=== PATIENT | male | born 1975 | race Caucasian/White ===

== ENCOUNTER 2022-01-30 11:30 | Emergency (ER) | payer BC, SELFPAY ==
[2022-01-30] VITALS (9 sets, daily range): BP systolic 97–119; BP diastolic 45–82; PULSE 96–116; RESP 24–32; TEMP 36.4–37.3; O2SAT 93–100; BMI 20.7
[2022-01-30] MEDS: 0.9% Normal Saline 1,000 ML 1000 ML IV ×2 (11:30→13:57)
--- NOTE | 2022-01-30 11:50 | EKG12_ITS ---
Test Reason : ALT LOC Blood Pressure : / mmHG Vent. Rate : 110 BPM Atrial Rate : 110 BPM P-R Int : 138 ms QRS Dur : 096 ms QT Int : 360 ms P-R-T Axes : 049 063 051 degrees QTc Int : 487 ms Sinus tachycardia Cannot exclude brugada Abnormal ECG Confirmed by AMINA MONTEZ, VINNY ([id number]), dictionary editor TRINI MAN ([id number]) on 02/04/2022 8:42:00 AM Referred By: VANNESA Confirmed By:VINNY HUYNH MD
--- NOTE | 2022-01-30 11:54 | EDS_ITS ---
HPI History of Present Illness Chief Complaint: Alt LOC Narrative Narrative: 46-year-old male was brought in after EMS after a welfare check. Patient was found lying inside his house and according to his sister she spoke with his coworkers who state he has not been to work in several days. He remembers cutting firewood with a chainsaw yesterday and crawling inside his residence. He has abrasions on the left side of his body but cannot tell me how these occurred and does not remember anything after crawling in his house. He states he smokes 1/2 PPD and occasionally has alcohol but denies drug use. He takes no prescription medications. He denies chest pain, shortness of breath, or any complaints. PFSH PFSH Medical History no medical history Family History unable to obtain Surgical History no surgical history Social History Smoking Status: Unknown if ever smoked ROS ROS ED ROS Narrative Constitutional: Negative for fever, chills, malaise. Eyes: Negative for visual change. ENT: Negative for sore throat, ear pain, rhinorrhea. CVS: Negative for palpitations, chest pain, syncope. Respiratory: Negative for shortness of breath, cough, orthopnea. GI: Negative for abdominal pain, nausea, vomiting, diarrhea, constipation, melena, hematochezia. : Negative for dysuria, hematuria or frequency. Neuro: Negative for headache, motor/sensory dysfunction. Skin: Positive for abrasions. Negative for rash, abscess Musc: Negative for joint pain, swelling, trauma. Heme: Negative for easy bruising, bleeding, lymphadenopathy. EXAM Physical Exam Narrative Exam Narrative: CONST: Patient sitting in no acute distress. EYES: EOMI, pinpoint pupils reactive bilaterally. ENT: Normal inspection, dry mucous membranes. NECK: Normal inspection. RESP: No respiratory distress, CTAB. CVS: Regular rate and rhythm, no murmur, no gallop. ABD: Soft and nontender, no guarding or rebound, nondistended. Back: Normal inspection. SKIN: Left chest has 4 x 4 cm, 1 x 2 cm abrasion/bullae left of umbilicus, 1 x 1 cm abrasion with blister left dorsal 5th MCP. EXTREMITIES: Dorsal left hand soft tissue swelling. No bony tenderness of upper or lower extremities, 2+ radial and DP pulses. NEURO: Oriented x4. PSYCH: Normal affect. Const Vital Signs: 01/30/22 11:32 01/30/22 11:48 01/30/22 13:50 Temperature 98.5 F 98.3 F Temperature Source Oral Temporal Pulse Rate 116 H 103 H Respiratory Rate 32 H 28 H Respiratory Pattern Normal Blood Pressure 114/76 97/75 Blood Pressure Mean 88 82 Pulse Ox 100 96 Oxygen Delivery Method Room Air 01/30/22 14:25 01/30/22 14:25 01/30/22 15:26 Temperature 99.2 F H 98.6 F Temperature Source Temporal Temporal Pulse Rate 96 98 99 Respiratory Rate 25 H 24 H 24 H Respiratory Pattern Blood Pressure 97/74 97/74 116/77 Blood Pressure Mean 81 81 90 Pulse Ox 96 96 93 Oxygen Delivery Method Room Air Room Air Room Air 01/30/22 16:09 Temperature 98.9 F Temperature Source Temporal Pulse Rate 104 H Respiratory Rate 28 H Respiratory Pattern Blood Pressure 113/79 Blood Pressure Mean 90 Pulse Ox 96 Oxygen Delivery Method Room Air MDM MDM MDM Narrative Medical decision making narrative: 46-year-old male has been lying in his house for several days. He is alert but disoriented and appears dehydrated but nontoxic. BP initially 90s/70s, heart rate in the 110s, RR 20-30s. Afebrile. He has abrasions of the left face, left chest, left abdomen and hand from lying on his side but no no gross deformity or injuries. Heart is rapid but regular. Lungs clear. Abdomen soft and nontender. Extremities are neurovascularly intact. CBC shows white count of 23.9. BMP shows normal electrolytes, creatinine of 2.54, AST/ALT 1961/544. CK is 76,811 consistent with rhabdomyolysis. Lactate is 6.3 and after fluids improved to 3.3. UA is consistent with UTI. Urine tox and alcohol screen ne gative. EKG was read by the machine as a STEMI but on our review is sinus tachycardia with no acute ischemia. High sensitivity troponin is 3172 so I consulted cardiology. Dr. Leyva evaluated the EKG and patient at bedside and does not think this is ACS; believes troponin is elevated secondary to rhabdomyolysis. Patient was treated with 2 L IV fluid bolus then 150 cc/hour, sodium bicarb drip, and Rocephin for the UTI. He has no sign of head injury but due to AMS a CT brain/C-spine were obtained and are negative for traumatic findings. CT brain does note a large CSF collection in the posterior fossa compressing both right and left cerebellar hemisphere spheres. Radiologist noted this is likely an enlarged cisterna magna versus arachnoid cyst. However, hospitalist is concerned with the abnormal CT finding he should be transferred to a tertiary center. Diagnoses 1. Altered mental status 2. Rhabdomyolysis 3. Renal failure 4. Transaminitis 5. Lactic acidosis 5. Multiple left sided abrasions 6. UTI Lab Data Attestation: I reviewed the patient's lab results. Labs: Laboratory Results - last 24 hr 01/30/22 01/30/22 01/30/22 11:40 11:40 11:40 WBC 23.9 H RBC 5.63 Hgb 17.3 H Hct 51.0 MCV 90.6 MCH 30.7 MCHC 33.9 RDW Std Deviation 49.9 H RDW Coeff of Rizwan 15.1 H Plt Count 217 MPV 9.9 Immature Gran % (Auto) 0.700 Neut % (Auto) 82.9 H Lymph % (Auto) 5.3 L [place] % (Auto) 4.8 Eos % (Auto) 6.1 H Baso % (Auto) 0.2 Absolute Neuts (auto) 19.8 H Absolute Lymphs (auto) 1.27 Nucleated RBC % 0 Sodium 137 Potassium 4.3 Chloride 105 Carbon Dioxide 21.0 Anion Gap 11 BUN 36 H Creatinine 2.54 H Estim Creat Clear Calc 39.11 Est GFR (MDRD) Af Amer 35 L Est GFR (MDRD) Non-Af 29 L BUN/Creatinine Ratio 14.2 Glucose 177 H Lactic Acid Calcium 8.8 Total Bilirubin 0.80 AST 1961 H ALT 544 H Alkaline Phosphatase 80 Total Creatine Kinase Troponin I High Sens Total Protein 7.0 Albumin 3.4 Globulin 3.6 Albumin/Globulin Ratio 0.9 Urine Color Urine Clarity Urine pH Ur Specific [place] Urine Protein Urine Glucose (UA) Urine Ketones Urine Occult Blood Urine Nitrite Urine Bilirubin Urine Urobilinogen Ur Leukocyte Esterase Urine RBC Urine WBC Ur Squamous Epith Cells Urine Bacteria Urine Mucus Urine Opiates Screen Urine Methadone Screen Ur Barbiturates Screen Ur Phencyclidine Scrn Ur Amphetamines Screen MDMA (Ecstasy) Screen U Benzodiazepines Scrn Urine Cocaine Screen U Cannabinoids Screen Ur Drug Screen Comment Ethyl Alcohol 10.0 01/30/22 01/30/22 01/30/22 11:40 11:40 11:40 WBC RBC Hgb Hct MCV MCH MCHC RDW Std Deviation RDW Coeff of [place]iz[place] Plt Count MPV Immature Gran % (Auto) Neut % (Auto) Lymph % (Auto) [place] % (Auto) Eos % (Auto) Baso % (Auto) Absolute Neuts (auto) Absolute Lymphs (auto) Nucleated RBC % Sodium Potassium Chloride Carbon Dioxide Anion Gap BUN Creatinine Estim Creat Clear Calc Est GFR (MDRD) Af Amer Est GFR (MDRD) Non-Af BUN/Creatinine Ratio Glucose Lactic Acid 6.3 H* Calcium Total Bilirubin AST ALT Alkaline Phosphatase Total Creatine Kinase 36312 H Troponin I High Sens 3172 H* Total Protein Albumin Globulin Albumin/Globulin Ratio Urine Color Urine Clarity Urine pH Ur Specific [place] Urine Protein Urine Glucose (UA) Urine Ketones Urine Occult Blood Urine Nitrite Urine Bilirubin Urine Urobilinogen Ur Leukocyte Esterase Urine RBC Urine WBC Ur Squamous Epith Cells Urine Bacteria Urine Mucus Urine Opiates Screen Urine Methadone Screen Ur Barbiturates Screen Ur Phencyclidine Scrn Ur Amphetamines Screen MDMA (Ecstasy) Screen U Benzodiazepines Scrn Urine Cocaine Screen U Cannabinoids Screen Ur Drug Screen Comment Ethyl Alcohol 01/30/22 01/30/22 01/30/22 13:10 13:10 14:25 WBC RBC Hgb Hct MCV MCH MCHC RDW Std Deviation RDW Coeff of [place]iz[place] Plt Count MPV Immature Gran % (Auto) Neut % (Auto) Lymph % (Auto) [place] % (Auto) Eos % (Auto) Baso % (Auto) Absolute Neuts (auto) Absolute Lymphs (auto) Nucleated RBC % Sodium Potassium Chloride Carbon Dioxide Anion Gap BUN Creatinine Estim Creat Clear Calc Est GFR (MDRD) Af Amer Est GFR (MDRD) Non-Af BUN/Creatinine Ratio Glucose Lactic Acid 3.3 H* Calcium Total Bilirubin AST ALT Alkaline Phosphatase Total Creatine Kinase Troponin I High Sens Total Protein Albumin Globulin Albumin/Globulin Ratio Urine Color Yellow Urine Clarity Clear Urine pH 5.0 Ur Specific [place] 1.025 Urine Protein 100 H Urine Glucose (UA) Normal Urine Ketones 15 H Urine Occult Blood 250 H Urine Nitrite Positive H Urine Bilirubin Negative Urine Urobilinogen 1 H Ur Leukocyte Esterase 25 H Urine RBC 25-50 SEEN Urine WBC 0-5 SEEN Ur Squamous Epith Cells 0-5 SEEN Urine Bacteria 1+ Urine Mucus 0 SEEN Urine Opiates Screen NEGATIVE Urine Methadone Screen NEGATIVE Ur Barbiturates Screen NEGATIVE Ur Phencyclidine Scrn NEGATIVE Ur Amphetamines Screen NEGATIVE MDMA (Ecstasy) Screen NEGATIVE U Benzodiazepines Scrn NEGATIVE Urine Cocaine Screen NEGATIVE U Cannabinoids Screen NEGATIVE Ur Drug Screen Comment Ethyl Alcohol Radiography Diagnostic Testing: Clinical Impression(s) from Imaging Studies Chest X-Ray 01/30/22 12:50 IMPRESSION: Hyperinflation. The lungs are clear. Electronically Signed: Grabiel Khan MD at 13:11 EDT , Brain CT 01/30/22 14:19 IMPRESSION: Mild degree of hydrocephalus. Large CSF collection in the posterior fossa as described. This most likely represents an enlarged cisterna magna although arachnoid cyst cannot be excluded. Electronically Signed: Grabiel Khan MD at 15:17 EDT , Cervical Spine CT 01/30/22 14:19 IMPRESSION: Normal unenhanced CT examination of the cervical spine. Electronically Signed: Grabiel Khan MD at 15:17 EDT , ED attending interpretation shows normal heart size, no acute infiltrate, edema, or effusion. EKG Initial EKG: Attestation: I personally reviewed and interpreted this EKG as follows: Interpretation: Sinus Rhythm and No Acute Injury Pattern Comments: Sinus tachycardia, normal intervals, 110 bpm Discharge Plan Triage Chief Complaint: Alt LOC ED Midlevel Provider: Jazmin Vyas ED Provider: Luis Felipe Nixon Dx/Rx/DC Orders Primary Care Provider: Care Physician,No Primary Referrals: Care Physician,No Primary [Primary Care Provider] -
[2022-01-30 12:01] LABS: Absolute Lymphocyte Count 1.27 X10^3/uL (0.83-4.51); Absolute Neutrophil Count 19.8 X10^3/uL (2.0-7.7); Basophil# 0.05 X10^3/uL; Basophil% 0.2 % (0-1); Eosinophil# 1.47 X10^3/uL; Eosinophils% 6.1 % (0-5); Hemoglobin 17.3 g/dL (13.0-16.5); Lymphocyte # 1.27 X10^3/ul (0.83-4.51); Lymphocyte % 5.3 % (19-41); Mean Corp Hgb Conc 33.9 g/dL (32-36); Mean Corpuscular Hgb 30.7 pg (27.0-32.0); Mean Corpuscular Volume 90.6 fL (80-94); Mean Platelet Vol. 9.9 fl (6.2-12.0); Monocyte# 1.14 X10^3/uL; Monocyte% 4.8 % (0-10); NRBC Flagged by Analyzer 0 % (0-5); Neutrophil # 19.83 X10^3/uL (2.7-7.7); Neutrophil % 82.9 % (47-70); POSITIVE MORPHOLOGY YES; Platelet Count 217 K/mm3 (150-450); RBC Distribution Width CV 15.1 % (11.6-14.6); RBC Distribution Width SD 49.9 fl (35.1-43.9); Red Blood Count 5.63 M/mm3 (4.6-6.2); White Blood Count 23.9 K/mm3 (4.4-11.0)
--- NOTE | 2022-01-30 12:04 | EKG12_ITS ---
Test Reason : ALT LOC Blood Pressure : / mmHG Vent. Rate : 111 BPM Atrial Rate : 111 BPM P-R Int : 140 ms QRS Dur : 094 ms QT Int : 360 ms P-R-T Axes : 049 063 052 degrees QTc Int : [address] elevation consider anterior injury or acute infarct Cannot exclude brugada Abnormal ECG Confirmed by AMINA MONTEZ, VINNY ([id number]), news video editor TRINI MAN ([id number]) on 02/04/2022 8:52:18 AM Referred By: VANNESA Confirmed By:VINNY HUYNH MD
[2022-01-30] MEDS: Diphth,Pertuss(Acell),Tet Vac 0.5 ML Vial IM (12:15)
[2022-01-30 12:34] LABS: Differential Indicated SCAN CRITERIA MET
[2022-01-30 12:46] LABS: ALB/GLOB Ratio 0.9 RATIO (0.9-2.4); AST(SGOT) 1961 U/L (15-37); Alanine Aminotransfer ALT/SGPT 544 U/L (16-61); Albumin, Serum 3.4 g/dL (3.2-5.0); Alkaline Phosphatase 80 U/L (45-117); Anion Gap 11 (5-15); BUN 36 mg/dL (7-18); BUN/Creat Ratio 14.2 RATIO (10-20); Calcium,Total 8.8 mg/dL (8.5-10.1); Chloride 105 mmol/L (98-107); Creatinine, Serum 2.54 mg/dL (0.70-1.30); EST Glomerular Filtration Rate 29 mL/min (>60); Est Glom Filt Rate - Afr Amer 35 mL/min (>60); Estimated Creatinine Clearance 39.11 ml/min; Globulin 3.6 g/dL (2.2-4.2); Glucose 177 mg/dL (74-106); Potassium 4.3 mmol/L (3.5-5.1); Sodium Level 137 mmol/L (136-145)
--- NOTE | 2022-01-30 12:50 | RAD_ITS ---
STUDY: X-RAY CHEST REASON FOR EXAM: 46-year-old male patient with history of loss of consciousness and fall., TECHNIQUE: Single AP portable view of the chest. COMPARISON: None. FINDINGS: EKG electrodes are seen. The lungs are clear and expanded. There is no demonstrated pleural abnormality. Normal size heart. Normal mediastinum and luis alberto. Normal visualized pulmonary arteries. Normal visualized aortic arch and descending thoracic aorta. There is a dextroscoliosis of the thoracic spine. Normal visualized ribs, clavicles, and shoulders. There is no demonstrated abnormality of the visualized soft tissue structures of the upper abdomen. RAD/Chest 1 View (Portable) IMPRESSION: Hyperinflation. The lungs are clear. Electronically Signed: Grabiel Khan MD at 13:11 EDT ,
[2022-01-30 13:16] LABS: Lactic Acid 6.3 mmol/L (0.4-1.9)
--- NOTE | 2022-01-30 13:38 | CM.ED ---
Social Work Note SW reviewed chart, no PCP listed for pt. Hilda NULL in to speak with pt and provided pt with PCP list. Mattie Elam LAMINATE FLOOR INSTALLER, CHEMICAL PROCESSING LABORER
[2022-01-30 13:40] LABS: Amphetamine Urine VISTA NEGATIVE (<1000 ng/mL); Barbiturate Urine VISTA NEGATIVE (< 200 ng/mL); Benzodiazepine Urine VISTA NEGATIVE (< 200 ng/mL); Cocaine Urine VISTA NEGATIVE (< 300 ng/mL); Ecstacy Urine VISTA NEGATIVE (< 500 ng/mL); Methadone Urine VISTA NEGATIVE (< 300 ng/mL); PCP Urine VISTA NEGATIVE (< 25 ng/mL); THC Urine VISTA NEGATIVE (< 50 ng/mL); Vista UDS pH Range 5
[2022-01-30] MEDS: LORazepam 2 MG/ML Syringe 1 MG IV (13:55)
[2022-01-30 14:05] LABS: Mucous, Urine 0 SEEN /hpf (<or=2+)
[2022-01-30 14:09] LABS: Color, Urine Yellow (Yellow); Glucose, Dipstick Normal (Normal); Ketone-Dipstick 15 mg/dl (Negative); Leukocyte Esterase-Dipstick 25 /ul (Negative); Nitrite-Dipstick Positive (Negative); Occult Blood-Urine 250 /ul (Negative); Protein-Dipstick 100 mg/dl (Negative); Specific Gravity, Urine 1.025 (1.002-1.030); Urine Bilirubin Dipstick Negative (Negative); Urine Clarity Clear (Clear); Urine Urobilinogen 1 mg/dl (Normal)
--- NOTE | 2022-01-30 14:19 | CT_ITS ---
STUDY: CT CERVICAL SPINE WITHOUT CONTRAST REASON FOR EXAM: Male, 46 years old. ams, fall left facial bruising. RADIATION DOSAGE (If Supplied By Facility): CTDIvol = ( 22.54 ) mGy, DLP = ( 465.85 ) mGycm TECHNIQUE: High resolution transaxial imaging was performed without contrast material. Sagittal and coronal images were reconstructed. Individualized dose optimization techniques were used for this CT. COMPARISON: None FINDINGS: Normal craniovertebral junction. Normal anterior atlantoaxial articulation. Normal odontoid process. Normal cervical lordosis. Normal vertebral bodies and posterior osseous elements. C2-3: Normal endplates. Normal disc height and morphology. Normal central canal and intervertebral neuroforamina. C3-4: Normal endplates. Normal disc height and morphology. Normal central canal and intervertebral neuroforamina. C4-5: Normal endplates. Normal disc height and morphology. Normal central canal and intervertebral neuroforamina. C5-6: Normal endplates. Normal disc height and morphology. Normal central canal and intervertebral neuroforamina. C6-7: Normal endplates. Normal disc height and morphology. Normal central canal and intervertebral neuroforamina. C7-T1: Normal endplates. Normal disc height and morphology. Normal central canal and intervertebral neuroforamina. Normal visualized soft tissue structures. CT/Spine Cervical without Contras IMPRESSION: Normal unenhanced CT examination of the cervical spine. Electronically Signed: Grabiel Khan MD at 15:17 EDT ,
--- NOTE | 2022-01-30 14:19 | CT_ITS ---
STUDY: CT BRAIN WITHOUT CONTRAST REASON FOR EXAM: Male, 46 years old. ams RADIATION DOSAGE (If Supplied By Facility): CTDIvol = ( 44.99 ) mGy, DLP = ( 829.85 ) mGycm TECHNIQUE: Transaxial CT imaging of the brain was performed without administration of intravenous contrast material. Individualized dose optimization techniques were used for this CT. COMPARISON: No relevant priors. FINDINGS: Normal soft tissue structures. Normal calvarium. Normal size ventricles and extra-axial spaces for the patient''s age. Normal white matter tracts of the cerebral hemispheres. There is evidence of a mild degree of hydrocephalus. Normal basal ganglia and thalami. Normal brainstem. Normal cerebellum. There is a 3.4 cm x 9.3 cm CSF collection along the posterior aspect of the cerebellum compressing both the right and left cerebellar hemispheres. This most likely represents an enlarged cisterna magna although the large arachnoid cyst cannot be excluded. There is no intracranial hemorrhage. There are no findings of an acute ischemic infarction. Normal visualized paranasal sinuses. CT/Brain/Head without Contrast IMPRESSION: Mild degree of hydrocephalus. Large CSF collection in the posterior fossa as described. This most likely represents an enlarged cisterna magna although arachnoid cyst cannot be excluded. Electronically Signed: Grabiel Khan MD at 15:17 EDT ,
[2022-01-30 14:24] LABS: Bacteria 1+ /hpf (None Seen); Red Blood Cells-Urine 25-50 SEEN /hpf (0-5); Squamous Epithelial Cells - UA 0-5 SEEN /hpf (0-5); White Blood Cells 0-5 SEEN /hpf (0-5)
[2022-01-30 14:47] LABS: Troponin-I HS 3172 pg/mL (3.0-78.0)
[2022-01-30 15:12] LABS: Lactic Acid 3.3 mmol/L (0.4-1.9)
[2022-01-30] MEDS: 0.9% Normal Saline 1,000 ML 150 ML IV (15:19)
[2022-01-30] MEDS: Ceftriaxone 1 GM/50 ML BAG IV (15:27)
--- NOTE | 2022-01-30 17:43 | NURSING ---
Mother and sister (Brittnee Konstantinpam and Rola Sena) at bedside. Updates given. [phone] and [phone] are their numbers, respectively.
--- NOTE | 2022-01-30 17:44 | TELEMED_ITS ---
SOC Telemed has confirmed receipt of a request for visit. This document confirms receipt of the order initiating the consult. To find the results of the consultation, please view the patient's reports for the scanned Telemed Consult.
--- NOTE | 2022-01-30 18:14 | NURSING ---
SOC consult completed, PA at bedside for consult
--- NOTE | 2022-01-30 18:33 | PCM.CONS.GEN ---
HPI Consult Data Date of Consult: 01/30/22 HPI Narrative Reason for Consultation: AMS, altered mental status, last seen well on Thursday HPI Narrative: MAUREEN HANDLEY, is a 46 M [facility] Medical History no medical history Allergy/AdvReac Type Severity Reaction Status Date / Time No Known Allergies Allergy Verified 01/30/22 18:10 Family History unable to obtain Surgical History no surgical history Social History Smoking Status: Unknown if ever smoked Lab / Micro Data Result Diagrams: 01/30/22 11:40 01/30/22 11:40 Labs: Laboratory Results - last 24 hr 01/30/22 11:40: WBC 23.9 H, RBC 5.63, Hgb 17.3 H, Hct 51.0, MCV 90.6, MCH 30.7, MCHC 33.9, RDW Std Deviation 49.9 H, RDW Coeff of Rizwan 15.1 H, Plt Count 217, MPV 9.9, Immature Gran % (Auto) 0.700, Neut % (Auto) 82.9 H, Lymph % (Auto) 5.3 L, [place] % (Auto) 4.8, Eos % (Auto) 6.1 H, Baso % (Auto) 0.2, Absolute Neuts (auto) 19.8 H, Absolute Lymphs (auto) 1.27, Nucleated RBC % 0 01/30/22 11:40: Sodium 137, Potassium 4.3, Chloride 105, Carbon Dioxide 21.0, Anion Gap 11, BUN 36 H, Creatinine 2.54 H, Estim Creat Clear Calc 39.11, Est GFR (MDRD) Af Amer 35 L, Est GFR (MDRD) Non-Af 29 L, BUN/Creatinine Ratio 14.2, Glucose 177 H, Calcium 8.8, Total Bilirubin 0.80, AST 1961 H, ALT 544 H, Alkaline Phosphatase 80, Total Protein 7.0, Albumin 3.4, Globulin 3.6, Albumin/Globulin Ratio 0.9 01/30/22 11:40: Ethyl Alcohol 10.0 01/30/22 11:40: Total Creatine Kinase 17886 H 01/30/22 11:40: Lactic Acid 6.3 H* 01/30/22 11:40: Troponin I High Sens 3172 H* 01/30/22 13:10: Urine Opiates Screen NEGATIVE, Urine Methadone Screen NEGATIVE, Ur Barbiturates Screen NEGATIVE, Ur Phencyclidine Scrn NEGATIVE, Ur Amphetamines Screen NEGATIVE, MDMA (Ecstasy) Screen NEGATIVE, U Benzodiazepines Scrn NEGATIVE, Urine Cocaine Screen NEGATIVE, U Cannabinoids Screen NEGATIVE, Ur Drug Screen Comment 01/30/22 13:10: Urine Color Yellow, Urine Clarity Clear, Urine pH 5.0, Ur Specific [place] 1.025, Urine Protein 100 H, Urine Glucose (UA) Normal, Urine Ketones 15 H, Urine Occult Blood 250 H, Urine Nitrite Positive H, Urine Bilirubin Negative, Urine Urobilinogen 1 H, Ur Leukocyte Esterase 25 H, Urine RBC 25-50 SEEN, Urine WBC 0-5 SEEN, Ur Squamous Epith Cells 0-5 SEEN, Urine Bacteria 1+, Urine Mucus 0 SEEN 01/30/22 14:25: Lactic Acid 3.3 H* Radiology Impression Chest X-Ray 01/30/22 12:50 IMPRESSION: Hyperinflation. The lungs are clear. Electronically Signed: Grabiel Khan MD at 13:11 EDT , Brain CT 01/30/22 14:19 IMPRESSION: Mild degree of hydrocephalus. Large CSF collection in the posterior fossa as described. This most likely represents an enlarged cisterna magna although arachnoid cyst cannot be excluded. Electronically Signed: Grabiel Khan MD at 15:17 EDT , Cervical Spine CT 01/30/22 14:19 IMPRESSION: Normal unenhanced CT examination of the cervical spine. Electronically Signed: Grabiel Khan MD at 15:17 EDT ,
--- NOTE | 2022-01-30 18:42 | PN.HOSP_ITS ---
Hospitalist Note Patient was seen at the request of ER physician Dr. Nixon. Patient has altered mental status, unconsciousness, last conversation with the parent, her mother on past 01/28/2022 through the phone. Patient lives alone. There is wellness check performed as patient did not show port for last 2 days. He was found laying on the kitchen table, unresponsive unconscious. Exact period of unresponsiveness, unconsciousness and history and cleared Patient not able to keep eyes open, opens momentarily on command but closes immediately. Bilateral pupils are constricted. Patient is not able to if you are, in complete sentences. Particularly ACS 11-day later twelve-lead. GCS 11- 12 Clinical Impression(s) from Imaging Studies Chest X-Ray 01/30/22 12:50 IMPRESSION: Hyperinflation. The lungs are clear. Electronically Signed: Grabiel Khan MD at 13:11 EDT , Brain CT 01/30/22 14:19 IMPRESSION: Mild degree of hydrocephalus. Large CSF collection in the posterior fossa as described. This most likely represents an enlarged cisterna magna although arachnoid cyst cannot be excluded. Electronically Signed: Grabiel Khan MD at 15:17 EDT , Cervical Spine CT 01/30/22 14:19 IMPRESSION: Normal unenhanced CT examination of the cervical spine. Electronically Signed: Grabiel Khan MD at 15:17 EDT ,
[2022-01-30 18:58] LABS: Ammonia < 10.0 umol/L (11-32)
[2022-01-30 19:03] LABS: Thyroid Stim Hormone (TSH) 4.49 uIU/mL (0.358-3.74)
--- NOTE | 2022-01-30 19:10 | ED.RN ---
Per day shift staff, patient is being transferred to [facility] but they do not have a bed for him. ED physician spoke with Dr Rashid and Dr Barker who both do not feel comfortable admitting patient. Dr Nixon waiting to speak with [facility] again.
--- NOTE | 2022-01-30 19:21 | PCM.CONS.GEN ---
Assessment & Plan Assessment/Plan (1) Acute encephalopathy: (2) Elevated intracranial pressure: (3) Non-STEMI (non-ST elevated myocardial infarction): (4) Acute renal failure due to rhabdomyolysis: PLAN: Plan 1. Unconscious/unresponsive episode, currently SEMICONSCIOUS, acute encephalopathy: Patient having features of increased intracranial pressure with bilateral constricted pupil, decreased responsiveness, GCS 11?12. No exact etiology unclear. CT brain and neck shows mild degree of hydrocephalus, large CSF collection in posterior fossa, 3.4 cm x 9.3 cm CSF collection along posterior aspect of cerebellum compressing right and left cerebellar hemispheres. 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 No ICH. No features of acute ischemic infarction. Patient has decreased responsiveness, decreased GCS with bilateral constricted pupil therefore needs urgent neurosurgeon evaluation which [facility] does not have. SOC neurology consultation recommended neurology and neurosurgery consultation in person BR[facility]. Neurochecks every 1 hour, seizure precaution, head to bed elevated 30 degrees SCDs and other test. MRI brain without contrast EEG. In fact patient needs neuro ICU care. I myself called [facility] and spoke to FRNACK Malone who is going to speak to neurosurgeon. Actually they were on the impression that patient is stable for [facility] floor. I told that the patient needs neuro ICU care and is showing features of increased intracranial pressure with decreased GCS score. They are going to call back the ER physician regarding logistics of transfer there direct admit or transfer to their ED. I communicated to the same to ER physician Dr. BLUE and he understood. 2. Acute rhabdomyolysis: Patient has CK 7611, lactic acid 6.3,HS-troponin 3172, elevated transaminases showing features of acute rhabdomyolysis. Needs aggressive IV fluid normal saline. Ethyl alcohol level is less than 10. U tox negative although is not confirmatory of ruling out substance use. Patient on bicarb drip. 3. Acute kidney injury: BUN/creatinine high 36/2.54. Acute kidney injury mostly due to acute rhabdomyolysis. Patient has mild proteinuria, nitrite positive, ketones 15, LE 25. Patient had 1 dose of IV ceftriaxone in the ED. Anion gap is normal. Bicarb 21. 4. Leukocytosis probably due to rhabdomyolysis: Inflammatory/reactive. Patient not having signs of any infection. I do not see patient has features of sepsis, sepsis less likely. Blood culture and urine culture has been ordered At [facility] neurologist recommended patient needs transfer to neuro ICU care with ability of inpatient neurologist and neurosurgeon therefore urgent transfer. Total time of the visit including total time spent in counseling or coordination of care, (more than 50% of the total time, spent in obtaining medical information from nurses and other ancillary care providers,explaining to the patient about labs, imaging, diagnosis and management), discussion with ER physician, patient's mother father in room, aco coordinator to [facility], discussion with neurology MOHAN Malone, and facilitation of transfer review of labs and imaging is 70 minutes. Laboratory Results 01/30/22 11:40: WBC 23.9 H, RBC 5.63, Hgb 17.3 H, Hct 51.0, MCV 90.6, MCH 30.7, MCHC 33.9, RDW Std Deviation 49.9 H, RDW Coeff of Rizwan 15.1 H, Plt Count 217, MPV 9.9, Immature Gran % (Auto) 0.700, Neut % (Auto) 82.9 H, Lymph % (Auto) 5.3 L, [place] % (Auto) 4.8, Eos % (Auto) 6.1 H, Baso % (Auto) 0.2, Absolute Neuts (auto) 19.8 H, Absolute Lymphs (auto) 1.27, Nucleated RBC % 0 01/30/22 11:40: Sodium 137, Potassium 4.3, Chloride 105, Carbon Dioxide 21.0, Anion Gap 11, BUN 36 H, Creatinine 2.54 H, Estim Creat Clear Calc 39.11, Est GFR (MDRD) Af Amer 35 L, Est GFR (MDRD) Non-Af 29 L, BUN/Creatinine Ratio 14.2, Glucose 177 H, Calcium 8.8, Total Bilirubin 0.80, AST 1961 H, ALT 544 H, Alkaline Phosphatase 80, Total Protein 7.0, Albumin 3.4, Globulin 3.6, Albumin/Globulin Ratio 0.9 01/30/22 11:40: Ethyl Alcohol 10.0 01/30/22 11:40: Total Creatine Kinase 17510 H 01/30/22 11:40: Lactic Acid 6.3 H* 01/30/22 11:40: Troponin I High Sens 3172 H* 01/30/22 13:10: Urine Opiates Screen NEGATIVE, Urine Methadone Screen NEGATIVE, Ur Barbiturates Screen NEGATIVE, Ur Phencyclidine Scrn NEGATIVE, Ur Amphetamines Screen NEGATIVE, MDMA (Ecstasy) Screen NEGATIVE, U Benzodiazepines Scrn NEGATIVE, Urine Cocaine Screen NEGATIVE, U Cannabinoids Screen NEGATIVE, Ur Drug Screen Comment 01/30/22 13:10: Urine Color Yellow, Urine Clarity Clear, Urine pH 5.0, Ur Specific [place] 1.025, Urine Protein 100 H, Urine Glucose (UA) Normal, Urine Ketones 15 H, Urine Occult Blood 250 H, Urine Nitrite Positive H, Urine Bilirubin Negative, Urine Urobilinogen 1 H, Ur Leukocyte Esterase 25 H, Urine RBC 25-50 SEEN, Urine WBC 0-5 SEEN, Ur Squamous Epith Cells 0-5 SEEN, Urine Bacteria 1+, Urine Mucus 0 SEEN 01/30/22 14:25: Lactic Acid 3.3 H* 01/30/22 18:25: TSH 4.49 H 01/30/22 18:25: Ammonia < 10.0 L 01/30/22 18:25: VBG Carboxyhemoglobin Pending 01/30/22 19:05: Total Creatine Kinase Pending, Troponin I High Sens Pending 01/30/22 19:05: Lactic Acid Pending Clinical Impression(s) from Imaging Studies Chest X-Ray 01/30/22 12:50 IMPRESSION: Hyperinflation. The lungs are clear. Brain CT 01/30/22 14:19 IMPRESSION: Mild degree of hydrocephalus. Large CSF collection in the posterior fossa as described. This most likely represents an enlarged cisterna magna although arachnoid cyst cannot be excluded. Electronically Signed: Grabiel Khan MD at 15:17 EDT , Cervical Spine CT 01/30/22 14:19 IMPRESSION: Normal unenhanced CT examination of the cervical spine. Electronically Signed: Grabiel Khan MD at 15:17 EDT , HPI Consult Data Date of Consult: 01/30/22 Attending Care Provider: Patient was seen at the request of ER physician Dr. Nixon. HPI Narrative Reason for Consultation: Decreased responsiveness, altered mental status HPI Narrative: MAUREEN HANDLEY, is a 46 M who presents Patient was seen at the request of ER physician Dr. Nixon. Patient has altered mental status, unconsciousness, last conversation with the parent, her mother on past 01/28/2022 through the phone.? Patient lives alone.? There is wellness check performed as patient did not show port for last 2 days.? He was found laying on the kitchen table, unresponsive unconscious. Exact period of unresponsiveness, unconsciousness and history and cleared Patient not able to keep eyes open, opens momentarily on command but closes immediately.? Bilateral pupils are constricted.? Patient is not able to if you are, in complete sentences.? Particularly ACS 11-day later twelve-lead. GCS 12. Patient able to protect his airway His mother said patient was born normal liver denies any section obstructed liver. Mom further said patient did not had big head but has broken shoulder. [facility] Medical History no medical history Home Medications NK 01/30/22 [History Last Taken Unknown] Allergy/AdvReac Type Severity Reaction Status Date / Time No Known Allergies Allergy Verified 01/30/22 18:10 Family History unable to obtain Surgical History no surgical history Social History Smoking Status: Unknown if ever smoked ROS ROS Narrative No history of substance use, drug use or alcohol as per mother. Patient states he does not had cocaine, methamphetamine or other substance use. 14 detail ROS unobtainable. Review of Systems ROS Unobtainable: due to encephalopathy and due to mental condition Physical Exam Narrative Physical exam General: Drowsy, lethargic, obtunded HEENT: Bilaterally constricted pupil. Patient keeps his eyes closed opens mainly on verbal command Oral: No Gingival or Mucosal Lesions/ Ulcerations Neck: Supple, No JVD, Negative Carotid Bruits Lungs: Air entry diminished in bilateral lung bases. No crepitation/rhonchi Cardiovascular: Sinus tachycardia normal S1, Normal S2, No murmurs Abdomen: Bowel Sounds Present, Soft, Non Tender, Non-Distended : No renal angle tenderness. No suprapubic tenderness. Extremities: No edema, Capillary Refill Less than 3 Seconds Skin: Blistered skin tear over left forearm ventral aspect and hand Musculoskeletal: No Tenderness to Palpation of Joints or Extremities Neurological: Detailed neuro exam unobtainable. GCS 11?12, Psych/Mental Status: Flat affect Lab / Micro Data Result Diagrams: 01/30/22 11:40 01/30/22 11:40 Labs: Laboratory Results - last 24 hr 01/30/22 11:40: WBC 23.9 H, RBC 5.63, Hgb 17.3 H, Hct 51.0, MCV 90.6, MCH 30.7, MCHC 33.9, RDW Std Deviation 49.9 H, RDW Coeff of Rizwan 15.1 H, Plt Count 217, MPV 9.9, Immature Gran % (Auto) 0.700, Neut % (Auto) 82.9 H, Lymph % (Auto) 5.3 L, [place] % (Auto) 4.8, Eos % (Auto) 6.1 H, Baso % (Auto) 0.2, Absolute Neuts (auto) 19.8 H, Absolute Lymphs (auto) 1.27, Nucleated RBC % 0 01/30/22 11:40: Sodium 137, Potassium 4.3, Chloride 105, Carbon Dioxide 21.0, Anion Gap 11, BUN 36 H, Creatinine 2.54 H, Estim Creat Clear Calc 39.11, Est GFR (MDRD) Af Amer 35 L, Est GFR (MDRD) Non-Af 29 L, BUN/Creatinine Ratio 14.2, Glucose 177 H, Calcium 8.8, Total Bilirubin 0.80, AST 1961 H, ALT 544 H, Alkaline Phosphatase 80, Total Protein 7.0, Albumin 3.4, Globulin 3.6, Albumin/Globulin Ratio 0.9 01/30/22 11:40: Ethyl Alcohol 10.0 01/30/22 11:40: Total Creatine Kinase 93209 H 01/30/22 11:40: Lactic Acid 6.3 H* 01/30/22 11:40: Troponin I High Sens 3172 H* 01/30/22 13:10: Urine Opiates Screen NEGATIVE, Urine Methadone Screen NEGATIVE, Ur Barbiturates Screen NEGATIVE, Ur Phencyclidine Scrn NEGATIVE, Ur Amphetamines Screen NEGATIVE, MDMA (Ecstasy) Screen NEGATIVE, U Benzodiazepines Scrn NEGATIVE, Urine Cocaine Screen NEGATIVE, U Cannabinoids Screen NEGATIVE, Ur Drug Screen Comment 01/30/22 13:10: Urine Color Yellow, Urine Clarity Clear, Urine pH 5.0, Ur Specific [place] 1.025, Urine Protein 100 H, Urine Glucose (UA) Normal, Urine Ketones 15 H, Urine Occult Blood 250 H, Urine Nitrite Positive H, Urine Bilirubin Negative, Urine Urobilinogen 1 H, Ur Leukocyte Esterase 25 H, Urine RBC 25-50 SEEN, Urine WBC 0-5 SEEN, Ur Squamous Epith Cells 0-5 SEEN, Urine Bacteria 1+, Urine Mucus 0 SEEN 01/30/22 14:25: Lactic Acid 3.3 H* 01/30/22 18:25: TSH 4.49 H 01/30/22 18:25: Ammonia < 10.0 L Radiology Impression Chest X-Ray 01/30/22 12:50 IMPRESSION: Hyperinflation. The lungs are clear. Electronically Signed: Grabiel Khan MD at 13:11 EDT , Brain CT 01/30/22 14:19 IMPRESSION: Mild degree of hydrocephalus. Large CSF collection in the posterior fossa as described. This most likely represents an enlarged cisterna magna although arachnoid cyst cannot be excluded. Electronically Signed: Grabiel Khan MD at 15:17 EDT Reading Location ID and State: [id number] / [id number] , Service support , Cervical Spine CT 01/30/22 14:19 IMPRESSION: Normal unenhanced CT examination of the cervical spine. Electronically Signed: Grabiel Khan MD at 15:17 EDT Reading Location ID and State: [id number] / [id number] , Service support , Charges/Coding Visit Charges Office Visits / Consults: [id number] IP Consult L5
[2022-01-30 19:47] LABS: Lactic Acid 2.5 mmol/L (0.4-1.9)
[2022-01-30 19:53] LABS: Carboxyhemoglobin Frac (CO) 3.2 % (0.0-1.5)
--- NOTE | 2022-01-30 20:27 | ED.RN ---
dr wall working on transferring pt to [facility].
--- NOTE | 2022-01-30 20:28 | NURSING ---
FAXED FACE SHEET TO [facility] AT 830PM
--- NOTE | 2022-01-30 20:35 | RAD_ITS ---
STUDY: X-RAY CHEST REASON FOR EXAM: Male, 46 years old. CHEST PAIN cough TECHNIQUE: XR Chest 1 View COMPARISON: Study done earlier today. FINDINGS: There is no demonstrated pleural abnormality. Normal size heart. Normal mediastinum and luis alberto. Normal visualized pulmonary arteries. Normal visualized aortic arch and descending thoracic aorta. Normal visualized thoracic spine. Normal visualized ribs, clavicles, and shoulders. There is no demonstrated abnormality of the visualized soft tissue structures of the upper abdomen. RAD/Chest 1 View (Portable) IMPRESSION: There are no acute findings. Electronically Signed: Dean Daly MD at 20:54 EDT ,
--- NOTE | 2022-01-30 20:55 | PCM.CONS.C ---
HPI Consult Data Date of Consult: 01/31/22 HPI Narrative Reason for Consultation: Elevated troponin in a patient that was found down. HPI Narrative: MAUREEN HANDLEY, is a 46 M who presents after being found down for close to 48 hours. Lives alone, independent in activities of daily living, no prior cardiac history, patient was not returning phone calls or messages, and a coworker found him on the floor unconscious. Patient not able to provide much history. Please refer to ER notes regarding history of presentation. His EKG showed subtle anterior ST-T abnormality, patient denied chest pressure tightness or heaviness. He was somewhat sleepy during the interview, but could be awakened, and responded appropriately to simple questions. He had had some injury from his fall. He showed evidence of rhabdomyolysis, troponin was elevated, but doubt acute coronary syndrome, it was probably type II myocardial infarction. No documented history of hypertension or diabetes. Abnormalities on the CT of the head as detailed, I have reviewed notes by admitting hospitalist, who has subsequently initiated neurosurgery evaluation, and the plan is for patient to be transferred for higher level of neurosurgical care. Remote history of drug abuse, none in the past several years. Very infrequent alcohol use. Family history of premature coronary artery disease in paternal uncle who suffered myocardial event in his late 40s/early 50s. Patient's sister provided this history Laboratory data notable for elevated total white count, elevated CPK, elevated troponin, and acute kidney injury. Patient also with evidence of urinary tract infection. Elevated lactic acid level Assessment: 1. No prior cardiac history 2. Abnormal EKG-not diagnostic of acute ST elevation myocardial infarction, but consider?? Brugada syndrome. No family history of sudden cardiac . No prior cardiac symptoms. Do not elicit any symptoms of chest discomfort. 3. Syncope, etiology unclear 4. Rhabdomyolysis 5. Acute kidney injury possibly related to rhabdomyolysis and volume depletion 6. Encephalopathy and findings of elevated intracranial pressure-please see detailed notes by hospitalist service 7. Elevated troponin most consistent with type II myocardial infarction. Recommendations: 1. Aggressive supportive care with fluids and antibiotics as you are doing 2. Echocardiogram 3. Serial troponins 4. Additional cardiac work-up will depend upon neurological status and extent of neurological recovery. 5. If echocardiogram shows preserved LV systolic function and no regional wall motion abnormality, and troponins trended down, if this patient needs any type of surgical procedure I would say that the risk benefit ratio is favorable. 6. Holding off on antiplatelet therapy given the possible need for surgery to relieve intracranial pressure. Patient was seen in the emergency department. This consult note is a late entry. Thank you for allowing us to participate in patient's care, please do not hesitate to call if further questions arise, Sincerely, Margaret dailey MD [facility] Medical History no medical history Home Medications NK 01/30/22 [History Last Taken Unknown] Allergy/AdvReac Type Severity Reaction Status Date / Time No Known Allergies Allergy Verified 01/30/22 18:10 Family History unable to obtain Surgical History no surgical history Social History Smoking Status: Unknown if ever smoked ROS Review of Systems ROS Unobtainable: due to encephalopathy Physical Exam Const Constitutional Narrative: Appears sleepy, but arousable. Able to answer very simple questions. No facial asymmetry, no jugular venous distention no carotid bruit lungs are clear anteriorly cannot exclude pectus excavatum breath sounds are diminished posteriorly at the bases without crepitations or rhonchi heart sounds are regular without murmur rub or gallop abdomen is soft and nontender extremities showed no edema distal pulses are symmetric and palpable plantar responses downgoing patient is moving all extremities skin shows no petechia or rash. No gross cranial nerve deficits or facial asymmetry no scleral icterus Risk Stratification Risk Stratification Applicable: Yes Age >/= 65: No >/= 3 CAD Risk Factors (HTN, HLD, DM, family hx of CAD, or current smoker): No Aspirin Use in the Past 7 Days: No Severe Angina (>/= episodes in 24 hours): No EKG ST Changes >/= 0.5mm: No Positive Cardiac Marker: Yes CALLY Risk Stratification Score: 1 CALLY % Risk: 5% Risk Objective Data Vital Signs: Vital Signs Temp Pulse Resp BP Pulse Ox 97.6 F L 103 H 28 H 108/45 L 96 01/30/22 19:58 01/30/22 19:58 01/30/22 19:58 01/30/22 19:58 01/30/22 19:58 Oxygen Delivery Method Room Air Weight: 166 lb Body Mass Index (BMI) 20.7 Intake & Output: Intake and Output for Last 24 Hours 01/28/22 01/29/22 01/30/22 23:59 23:59 23:59 Intake Total 2049 Balance 2049 Lab / Micro Data Result Diagrams: 01/30/22 23:30 01/30/22 23:30 Labs: Laboratory Results - last 24 hr 01/30/22 11:40: WBC 23.9 H, RBC 5.63, Hgb 17.3 H, Hct 51.0, MCV 90.6, MCH 30.7, MCHC 33.9, RDW Std Deviation 49.9 H, RDW Coeff of Rizwan 15.1 H, Plt Count 217, MPV 9.9, Immature Gran % (Auto) 0.700, Neut % (Auto) 82.9 H, Lymph % (Auto) 5.3 L, [place] % (Auto) 4.8, Eos % (Auto) 6.1 H, Baso % (Auto) 0.2, Absolute Neuts (auto) 19.8 H, Absolute Lymphs (auto) 1.27, Nucleated RBC % 0 01/30/22 11:40: Sodium 137, Potassium 4.3, Chloride 105, Carbon Dioxide 21.0, Anion Gap 11, BUN 36 H, Creatinine 2.54 H, Estim Creat Clear Calc 39.11, Est GFR (MDRD) Af Amer 35 L, Est GFR (MDRD) Non-Af 29 L, BUN/Creatinine Ratio 14.2, Glucose 177 H, Calcium 8.8, Total Bilirubin 0.80, AST 1961 H, ALT 544 H, Alkaline Phosphatase 80, Total Protein 7.0, Albumin 3.4, Globulin 3.6, Albumin/Globulin Ratio 0.9 01/30/22 11:40: Ethyl Alcohol 10.0 01/30/22 11:40: Total Creatine Kinase 04541 H 01/30/22 11:40: Lactic Acid 6.3 H* 01/30/22 11:40: Troponin I High Sens 3172 H* 01/30/22 13:10: Urine Opiates Screen NEGATIVE, Urine Methadone Screen NEGATIVE, Ur Barbiturates Screen NEGATIVE, Ur Phencyclidine Scrn NEGATIVE, Ur Amphetamines Screen NEGATIVE, MDMA (Ecstasy) Screen NEGATIVE, U Benzodiazepines Scrn NEGATIVE, Urine Cocaine Screen NEGATIVE, U Cannabinoids Screen NEGATIVE, Ur Drug Screen Comment 01/30/22 13:10: Urine Color Yellow, Urine Clarity Clear, Urine pH 5.0, Ur Specific [place] 1.025, Urine Protein 100 H, Urine Glucose (UA) Normal, Urine Ketones 15 H, Urine Occult Blood 250 H, Urine Nitrite Positive H, Urine Bilirubin Negative, Urine Urobilinogen 1 H, Ur Leukocyte Esterase 25 H, Urine RBC 25-50 SEEN, Urine WBC 0-5 SEEN, Ur Squamous Epith Cells 0-5 SEEN, Urine Bacteria 1+, Urine Mucus 0 SEEN 01/30/22 14:25: Lactic Acid 3.3 H* 01/30/22 18:25: TSH 4.49 H 01/30/22 18:25: Ammonia < 10.0 L 01/30/22 19:05: Lactic Acid 2.5 H* ABG Data ABG results: ABG 01/30/22 18:25 VBG Carboxyhemoglobin 3.2 H Cardiology Labs/Tests 01/30/22 11:40: WBC 23.9 H, RBC 5.63, Hgb 17.3 H, Hct 51.0, MCV 90.6, MCH 30.7, MCHC 33.9, Plt Count 217, MPV 9.9, Immature Gran % (Auto) 0.700, Neut % (Auto) 82.9 H, Lymph % (Auto) 5.3 L, [place] % (Auto) 4.8, Eos % (Auto) 6.1 H, Baso % (Auto) 0.2, Absolute Neuts (auto) 19.8 H, Nucleated RBC % 0 01/30/22 11:40: Sodium 137, Potassium 4.3, Chloride 105, Carbon Dioxide 21.0, Anion Gap 11, BUN 36 H, Creatinine 2.54 H, Est GFR (MDRD) Af Amer 35 L, Est GFR (MDRD) Non-Af 29 L, BUN/Creatinine Ratio 14.2, Glucose 177 H, Calcium 8.8, Total Bilirubin 0.80 01/30/22 11:40: Lactic Acid 6.3 H* 01/30/22 13:10: Urine Color Yellow, Urine Clarity Clear, Urine pH 5.0, Ur Specific [place] 1.025, Urine Protein 100 H, Urine Glucose (UA) Normal, Urine Ketones 15 H, Urine Occult Blood 250 H, Urine Nitrite Positive H, Urine Bilirubin Negative, Urine Urobilinogen 1 H, Ur Leukocyte Esterase 25 H, Urine RBC 25-50 SEEN, Urine WBC 0-5 SEEN 01/30/22 14:25: Lactic Acid 3.3 H* 01/30/22 19:05: Lactic Acid 2.5 H* Rhythm: EKG: ECHO: Stress Test: Cardiac Cath: PCI: CT Surgery: Holter monitor: EPS: PPM: CXR: Chest CT Scan: Radiography Diagnostic Testing: Radiology Impression Chest X-Ray 01/30/22 12:50 IMPRESSION: Hyperinflation. The lungs are clear. Electronically Signed: Grabiel Khan MD at 13:11 EDT , Brain CT 01/30/22 14:19 IMPRESSION: Mild degree of hydrocephalus. Large CSF collection in the posterior fossa as described. This most likely represents an enlarged cisterna magna although arachnoid cyst cannot be excluded. Electronically Signed: Grabiel Khan MD at 15:17 EDT , Cervical Spine CT 01/30/22 14:19 IMPRESSION: Normal unenhanced CT examination of the cervical spine. Electronically Signed: Grabiel Khan MD at 15:17 EDT ,
[2022-01-30 21:22] LABS: Troponin-I HS 2786 pg/mL (3.0-78.0)
--- NOTE | 2022-01-30 22:30 | NURSING ---
CALLED [facility] AT 0 AND NO UPDATE ON A BED YET
[2022-01-30 23:09] LABS: Reflex Lactate? Y
[2022-01-30 23:26] LABS: CPK Total, Creatine Kinase 58840 U/L (39-308)
--- NOTE | 2022-01-30 23:26 | NURSING ---
CALLED SOC NEUROLOGY PER DR DUKE TO TALK WITH THE DR WHO DID CONSULT EARLIER AT [id number]. WAITING FOR CALL BACK
[2022-01-30 23:41] LABS: Absolute Lymphocyte Count 1.92 X10^3/uL (0.83-4.51); Absolute Neutrophil Count 17.9 X10^3/uL (2.0-7.7); Basophil# 0.04 X10^3/uL; Basophil% 0.2 % (0-1); Eosinophil# 0.01 X10^3/uL; Hematocrit 42.8 % (40-54); Hemoglobin 14.9 g/dL (13.0-16.5); Lymphocyte # 1.92 X10^3/ul (0.83-4.51); Lymphocyte % 8.8 % (19-41); Mean Corp Hgb Conc 34.8 g/dL (32-36); Mean Corpuscular Hgb 30.9 pg (27.0-32.0); Mean Corpuscular Volume 88.8 fL (80-94); Mean Platelet Vol. 9.8 fl (6.2-12.0); Monocyte# 1.74 X10^3/uL; NRBC Flagged by Analyzer 0 % (0-5); Neutrophil # 17.89 X10^3/uL (2.7-7.7); Neutrophil % 82.5 % (47-70); POSITIVE DIFFERENTIAL YES; Platelet Count 153 K/mm3 (150-450); RBC Distribution Width CV 14.7 % (11.6-14.6); RBC Distribution Width SD 48.2 fl (35.1-43.9); Red Blood Count 4.82 M/mm3 (4.6-6.2); White Blood Count 21.7 K/mm3 (4.4-11.0)
[2022-01-30 23:43] LABS: Differential Indicated SCAN CRITERIA MET
--- NOTE | 2022-01-30 23:53 | ED.RN ---
Dr Cisse paged for admission until patient receives [facility] bed. Dr cisse does not feel patient is safe to be admitted here and wishes to speak to the neurology from [facility] that did his SOC consult earlier. ED paged for SOC.
[2022-01-31 00:01] LABS: Lactic Acid 1.3 mmol/L (0.4-1.9)
[2022-01-31 00:07] LABS: ALB/GLOB Ratio 0.8 RATIO (0.9-2.4); AST(SGOT) 1261 U/L (15-37); Alanine Aminotransfer ALT/SGPT 417 U/L (16-61); Albumin, Serum 2.6 g/dL (3.2-5.0); Alkaline Phosphatase 65 U/L (45-117); Anion Gap 5 (5-15); Anisocytosis 1+; BUN 36 mg/dL (7-18); BUN/Creat Ratio 17.6 RATIO (10-20); Calcium,Total 7.8 mg/dL (8.5-10.1); Chloride 105 mmol/L (98-107); Creatinine, Serum 2.04 mg/dL (0.70-1.30); EST Glomerular Filtration Rate 38 mL/min (>60); Est Glom Filt Rate - Afr Amer 46 mL/min (>60); Globulin 3.2 g/dL (2.2-4.2); Glucose 145 mg/dL (74-106); Protein, Total 5.8 g/dL (6.4-8.2); Sodium Level 135 mmol/L (136-145)
--- NOTE | 2022-01-31 00:54 | ED.RN ---
called [facility] transfer line for update on bed availability. spoke with Tello who states there is no ETA for bed. This RN explains that our hospitalist does not want to admit/board patient and the patient is not appropriate to keep in the ED for days. He states he is going to call the MICU and try to get a closer update. Waiting for a call back.
[2022-01-31 01:05] LABS: Allen Test Positive; Base Excess -2 mmol/L (-2 to +2); Bicarbonate 22.1 mmol/L (22-26); Blood Gas Specimen Type ART; O2 Delivery Device Room Air; PO2 74 mmHG (75-100); SITE L Radial; SO2 96 % (95-99); Total Carbon Dioxide 23 mmol/L; pCO2 30.8 mmHg (35-45); pH 7.46 (7.35-7.45)
[2022-01-31 01:13] VITALS: BP 93/50; PULSE 96; RESP 18; TEMP 36.7; O2SAT 94
[2022-01-31] MEDS: Tetracaine 0.5% Ophthalmic Bottle 1 DRP EACH EYE (02:32)
[2022-01-31] MEDS: Fluorescein 1 MG STRIP 1 STRIP EACH EYE (02:32)
[2022-01-31 02:41] VITALS: BP 133/84; PULSE 100; RESP 18; TEMP 36.6; O2SAT 98
[2022-01-31] MEDS: Erythromycin Base 1 OPTH.TUBE 1 APPLIC EACH EYE (03:32)
--- NOTE | 2022-01-31 04:20 | ED.RN ---
[facility] critical care transport team calls asking for report on patient, states patient has a bed and they will call back in a few minutes with ETA and admitting details.
[2022-01-31 04:34] LABS: International Normalized Ratio 1.2; Prothrombin Time (Protime)PT. 14.7 SECONDS (11.7-14.9)
[2022-01-31 04:54] LABS: T4 Free Direct 0.89 ng/dL (0.76-1.46); Troponin-I HS 1792 pg/mL (3.0-78.0)
--- NOTE | 2022-01-31 05:53 | NURSING ---
CALLED [facility] APPROX 0530 THEY GAVE BED NUMBER. THEY SAID THEY WILL CALL APPROX [id number] WITH TRANSPORT ETA.
[2022-01-31] MEDS: 0.9% Normal Saline 1,000 ML 150 ML IV (06:07)
[2022-01-31 06:08] LABS: CPK Total, Creatine Kinase 49944 U/L (39-308)
[2022-01-31 07:34] VITALS: BP 132/88; PULSE 91; TEMP 36.4; O2SAT 99
[2022-01-31 13:53] LABS: Pathologist Review Reviewed
== END 2022-01-31 07:56 | disposition short-term general hospital (02) ==
PROVIDERS: Internal Medicine; Physician Assistant; Emergency Provider Emergency Medicine; PCP Family Medicine; Visit Provider Emergency Medicine
DX: G91.9 Hydrocephalus, unspecified (principal); N17.9 Acute kidney failure, unspecified; I21.4 Non-ST elevation (NSTEMI) myocardial infarction; M62.82 Rhabdomyolysis; R74.01 Elevation of levels of liver transaminase levels; E87.2 Acidosis; G93.40 Encephalopathy, unspecified; N39.0 Urinary tract infection, site not specified; S20.91XA Abrasion of unspecified parts of thorax, initial encounter; S30.811A Abrasion of abdominal wall, initial encounter; S00.81XA Abrasion of other part of head, initial encounter; S20.312A Abrasion of left front wall of thorax, initial encounter; S60.519A Abrasion of unspecified hand, initial encounter; F17.200 Nicotine dependence, unspecified, uncomplicated
CPT/HCPCS: 36600; 70450; 71045; 72125; 80053; 80307; 81001; 82077; 82140; 82375; 82550; 82803; 83605; 84439; 84443; 84484; 85025; 85610; 87040; 87086; 87811; 90715; 93005; 96361; 96365; 96366; 96367; 96375; 99285; J7030; A4216

== ENCOUNTER 2022-09-18 15:30 | Outpatient (RCR) | payer BC, SELFPAY ==
--- NOTE | 2022-04-01 10:34 | HP.OTEVAL ---
Patient's Visit Information MAUREEN HANDLEY is a 46 year old M, referred to Occupational Therapy by Dr. Caleb Cote MD, with a diagnosis of compression neuropathy of left UE/ Physical debility. Date of Evaluation: 03/31/22 Occupational Therapist: Gemma Traore, KIMANI/John, CHT - Subjective This 46 year old male was seen for OT eval with dx of Physical debility, compression neuropathy of left UE- pt states he suffered a heat stroke, rhabdomyolysis, SUDHEER,DVT of left leg and left compression neuropathy left hand- intracrainial arachnoid cyst January 29- (lost power and did not have air conditioning) passed out right inside the front door and woke up two days later. pt states his work ([employer] [place] employed 15 years ) called in a well check visit- and he was able to answer the door- they called EMS transported to [facility] and transferred to - and was released home possibly February 05 or sometime around there- pt lives a long - states worse part is trying to sleep - states he hurts all over- he has not had a nerve conduction test but will see a neurologist the end of this. month- pt states he is doing some ROM for his left UE- and is undergoing PT at . prior to this event he was IND. with all ADLs and IADLs. - ADLs Comments: pt states he is mtg with his ADls and IADLs - pt states everything takes longer -. He has been going to his parents home for meals and sisters home-. sister is helping with his yard work. - Pain left UE 2 Pain Intensity Range: 3, 5 - ROM Shoulder: right WNL left 150* left ER/IF shoulder LIMITED Elbow: right WNL left WNL Forearm: right WNL left WNL Wrist: right 75/60 left 50/50 CMC: right WNL left +20 MP: right 70* left 65* IP: right 75* left 65* Radial Abduction: right45* left 25* Opposition: Kapandji opposition scale right 10 left 5 ROM Comments: pt demo with claw hand deformity of left hand - Strength Supervisor Industrial Arts Education: right 80# left 10# Lateral Pinch: right 14# left unable Tripod Pinch: right 12# left unable - Sensation Thumb: right 2.83 left 6.51 Index: right 2.83 left 6.51 Middle: right 2.83 left 6.51 Ring: right 2.83 left 6.51 Little: right 2.83 left 6.51 Sensation Comments: pt sensation distal wrist serve diminished sensation - Quick DASH-Disab of Arm,Shoulder& Hand Quick DASH Score: 70.0000 - Goals Goal:: pt will demo a increase in left UE strength and demo a left news reel cameraman strength of 35# or greater by d/c Goal:: pt will demo left digit ext to straighten fingers to place hands in pocket by d.c. pt will demo the ability to perform digit opposition indication of increase Fine motor skills by d/c. pt will demo left UE shoulder elbow and wrist and forearm ROM WNL by d.c to increase pts in. with ADls and IADLS. pt will demo left hand grasp/release of small/ med. and large objects by d/c Goal:: pt will demo IND with bilateral hands skills demo ind tie- manipulate coins- button and zipper by d.c Goal:: pt will demo understanding of sensory precautions as visual compensation to prevent injury to left hand while performing meal prep and IADLs by d/c. pt will demo increase in left hand sensation by testing with monofilaments at 3.19 level or less by d/c Goal:: pt will demo use of orthosis to prevent contractures of left hand by end of 2nd session-. pt will demo IND doffing/donning of orthosis by end of 2nd session-. 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 pt would benefit from skilled OTR/L,CHT services 2-3x week for 8 weeks to ed. pt on nerve healing, ad. eq. visual compensation due to sensation loss to avoid further injury to left hand- along with orthosis to prevent contractures- along with ROM and strengthening as kirk. Pt demo understanding and agree to POC. Rehabilitation Potential: Questionable - Anticipated Interventions A/AAROM/PROM, Strengthening, Sensory Retraining, Orthoses, Joint Protection/Energy Conservation, Ergonomic Education, Fine Motor Coord/Roc, Neuro Reeducation, Education re assistive Equipment, Home Program - Visit Plan Frequency: 2-3x /Week Duration: 2 Months TEXT: Thank you for the opportunity to evaluate your patient. For Medicare and Medicare HMO plans, please review the plan of care and approve it. It will need to be FAXED BACK to us at [phone] for Medicare purposes. Please let me know if there are questions or concerns regarding this plan of care. Physician Signature: Date:
--- NOTE | 2022-05-12 15:08 | OTREVAL_ITS ---
Dr. Caleb Cote MD, It has been my pleasure to treat MAUREEN HANDLEY over the last 11 visits for compression neuropathy of left UE/ Physical debility. Please see the progress note below for an update on the occupational therapy plan of care! Subjective: Pt. started using total fit gym at home about 2x a day with given exercise the therapist advised him to do as his HEP. Also doing exercises Nerve glides. pt states up his medication has also helped. Objective/Function: pt demo with + claw hand deformity of left hand due to compression while passed out- pt states he is performing his ex about 2 x a Day- . pt demo with a 12# left digital marketing intern this is improved. monofilament testing. left thumb 4.74. left IF -LF 5.07- pt making gains with sensation but still sig. decrease in safety with hot and sharp object -. pt is demo use of anti-claw orthosis with tasks-. pt still sig. limited with use of left hand with ADLs and IADls and would benefit from further skilled OT services. Plan Frequency: 2-3x /Week Duration: 2 Months Plan: cont with thoracic stretching and median- ulnar and radial nerve glides- strengthening as able and as nerve return Goals - Goals Patient Goals: Regain Mobility, Return to Work, Improve Fine Motor Skills, Use Hand/Wrist/Arm Normally Again, Decrease Tingling/Numbness, Be More Independent in ADLS Goal:: pt will demo a increase in left UE strength and demo a left digital marketing intern strength of 35# or greater by d/c Goal:: pt will demo left digit ext to straighten fingers to place hands in pocket by d.c ( pt is able to straighten finger (PIP to -10* of extension on left hand). pt will demo the ability to perform digit opposition indication of increase Fine motor skills by d/c. pt will demo left UE shoulder elbow and wrist and forearm ROM WNL by d.c to increase pts in. with ADls and IADLS. pt will demo left hand grasp/release of small/ med. and large objects by d/c Goal:: pt will demo IND with bilateral hands skills demo ind tie- manipulate coins- button and zipper by d.c Goal:: pt will demo understanding of sensory precautions as visual compensation to prevent injury to left hand while performing meal prep and IADLs by d/c. pt will demo increase in left hand sensation by testing with monofilaments at 3.19 level or less by d/c Goal:: pt will demo use of orthosis to prevent contractures of left hand by end of 2nd session-. pt will demo IND doffing/donning of orthosis by end of 2nd session-. pt will demo understanding of orthosis precautions by end of 2nd session Anticipated Interventions Anticipated Interventions: A/AAROM/PROM, Strengthening, Sensory Retraining, Orthoses, Joint Protection/Energy Conservation, Ergonomic Education, Fine Motor Coord/Roc, Neuro Reeducation, Education re assistive Equipment, Home Program Please do not hesitate to contact me at [phone] by phone or if you have questions or concerns regarding this new plan of care! Sincerely, Gemma Traore, OTR/L, CHT
--- NOTE | 2022-05-27 07:09 | OTREVAL_ITS ---
Dr. Caleb Cote MD, It has been my pleasure to treat MAUREEN HANDLEY over the last 4 visits for compression neuropathy of left UE/ Physical debility. Please see the progress note below for an update on the occupational therapy plan of care! Subjective: Pt stated he is using hand braces, pt doing exercises and nerve glides. Sleep varies; sometimes struggles to sleep and stay asleep. Pt stated he can zip coat indep. Buttons he can do but are challenging and take a long time has to visually watch what his hands are doing. Pt attempted to put hands in pocket, attempted 3x and had to watch to be successful. Objective/Function: Furniture Upholsterer Apprentice strength R Hand- 110#. Furniture Upholsterer Apprentice strength L Hand- 15# this is up from unable at eval and up from 12# at 05/12/22. Tripod grasp- R Hand- 20#. Tripod grasp- L Hand- 3#. Lateral grasp- R Hand- 25#. Lateral grasp- L Hand- 5#. pt continues to demo with claw hand deformity due to nerve compress ion. monofilament testing. left thumb 4.74. left IF -LF 5.07- pt making gains with sensation but still sig. decrease in safety with hot and sharp object -. pt is demo use of anti-claw orthosis with tasks-. pt making gains but due to severity of nerve compression pt will continue to struggle with IND use of left hand for ADLs- pt would benefit from continued therapy services 2-3x week for 8 weeks. Therapy will continue to monitor nerve reinnervation with movement- and sensory testing along with strengthening pts Left UE and ed, with ad. eq. and visual compensatory dereck. Plan Frequency: 2-3x /Week Duration: 2 Months Plan: cont with thoracic stretching and median- ulnar and radial nerve glides- strengthening as able and as nerve return - ad. eq. for sensation loss - orthosis use Goals - Goals Patient Goals: Regain Mobility, Return to Work, Improve Fine Motor Skills, Use Hand/Wrist/Arm Normally Again, Decrease Tingling/Numbness, Be More Independent in ADLS Goal:: pt will demo a increase in left UE strength and demo a left information technology project manager strength of 35# or greater by d/c Goal:: pt will demo left digit ext to straighten fingers to place hands in pocket by d.c ( pt is able to straighten finger (PIP to -10* of extension on left hand). pt will demo the ability to perform digit opposition indication of increase Fine motor skills by d/c. pt will demo left UE shoulder elbow and wrist and forearm ROM WNL by d.c to increase pts in. with ADls and IADLS. pt will demo left hand grasp/release of small/ med. and large objects by d/c Goal:: pt will demo IND with bilateral hands skills demo ind tie- manipulate coins- button and zipper by d.c Goal:: pt will demo understanding of sensory precautions as visual compensation to prevent injury to left hand while performing meal prep and IADLs by d/c. pt will demo increase in left hand sensation by testing with monofilaments at 3.19 level or less by d/c Goal:: pt will demo use of orthosis to prevent contractures of left hand by end of 2nd session-. pt will demo IND doffing/donning of orthosis by end of 2nd session-. pt will demo understanding of orthosis precautions by end of 2nd session Anticipated Interventions Anticipated Interventions: A/AAROM/PROM, Strengthening, Sensory Retraining, Orthoses, Joint Protection/Energy Conservation, Ergonomic Education, Fine Motor Coord/Roc, Neuro Reeducation, Education re assistive Equipment, Home Program Please do not hesitate to contact me at [phone] by phone or if you have questions or concerns regarding this new plan of care! Sincerely, Gemma Traore, OTR/L, CHT
--- NOTE | 2022-07-15 15:58 | HP.OTREVAL ---
Dr. Caleb Cote MD, It has been my pleasure to treat MAUREEN HANDLEY over the last 1 visits for compression neuropathy of left UE/ Physical debility. Please see the progress note below for an update on the occupational therapy plan of care! Subjective: pt arrives to 9th OT visit approved by insurance- pt states he feels he has made gains with his hand and the ability to make a fist- pt feels 65% improvement- pt states he continues to struggle with holding on to all size objects. Objective/Function: Public Health Doctor strength R Hand- 110#. Public Health Doctor strength L Hand 60# this is up 37# Nov. and up from 12# at 05/12/22. Tripod grasp- L Hand- #2 this is up from unable. Lateral grasp- L Hand- 4#. pt left thumb 3.61. left IF 3.22. left MF 3.22. left RF 3.22. left LF 3.22. monofilament testing indicated increase in sensory return of both median and ulnar nerves. pt demo with good motor return from his injury no noticeable ulnar nerve deformity. pt demo with increase in MMT of UB to 4+/5 grossly throughout- pt demo with weak managing consultant clinical professor and pinch - finger abduction poor notable limited webs pace on left - pt would benefit from continued OT services 1x week for 8 weeks for pt to reach maximal rehab potential. Plan Frequency: 1-2x /Week Duration: 2 Months Plan: cont. and median- ulnar and radial nerve glides- strengthening as able and as nerve return - ad. eq. for sensation loss. Goals - Goals Patient Goals: Regain Mobility, Return to Work, Improve Fine Motor Skills, Use Hand/Wrist/Arm Normally Again, Decrease Tingling/Numbness, Be More Independent in ADLS Goal:: pt will demo a increase in left UE strength and demo a left managing consultant clinical professor strength of 100# or greater by d/c making gains Goal:: pt will demo left digit ext to straighten fingers to place hands in pocket by d.c ( pt is able to straighten finger (PIP to -10* of extension on left hand) GOAL MET. pt will demo the ability to perform digit opposition indication of increase Fine motor skills by d/c GOAL MET. pt will demo left UE shoulder elbow and wrist and forearm ROM WNL by d.c to increase pts in. with ADls and IADLS. GOAL MET. pt will demo left hand grasp/release of small/ med. and large objects by d/c - pt making gains but continues to drop items decreasing IND with ADLs and IADLs. Goal:: pt will demo IND with bilateral hands skills demo ind tie- manipulate coins- button and zipper by d.c making progress Goal:: pt will demo understanding of sensory precautions as visual compensation to prevent injury to left hand while performing meal prep and IADLs by d/c. pt will demo increase in left hand sensation by testing with monofilaments at 3.19 level or less by d/c Goal:: pt will demo use of orthosis to prevent contractures of left hand by end of 2nd session-. pt will demo IND doffing/donning of orthosis by end of 2nd session-. pt will demo understanding of orthosis precautions by end of 2nd session Anticipated Interventions Anticipated Interventions: A/AAROM/PROM, Strengthening, Sensory Retraining, Orthoses, Joint Protection/Energy Conservation, Ergonomic Education, Fine Motor Coord/Roc, Neuro Reeducation, Education re assistive Equipment, Home Program Please do not hesitate to contact me at [phone] by phone or if you have questions or concerns regarding this new plan of care! Sincerely, Gemma Traore, OTR/L, CHT
--- NOTE | 2022-09-18 15:54 | HP.OTREVAL ---
Dr. Caleb Cote MD, It has been my pleasure to treat MAUREEN HANDLEY over the last 1 visits for compression neuropathy of left UE/ Physical debility. Please see the progress note below for an update on the occupational therapy plan of care! Subjective: pt arrives states he went to Neurologist two weeks ago and she increased his nerve medication to take 3x a day. pt states he is working more as they are short staffed at work- pt states in regards to his ADLS like cutting nails, cooking meals, buttons and typing is difficulty. Objective/Function: Monofilament sensation testing R 2.83. Left digits 3.61 index, middle and ring-. 3.22 LLF, L thumb 3.22. left apiculture teacher strength 75# increase from 60#. left lateral pinch strength 8#. left tripod pinch strength 10#. pt has made good gains with his strength of left UE MMT right 5/5 left 4-/5 shoulder. biceps right 29# left 22# peak force left continues to demo weakness limiting his ADLs and IADL ind. Pt. reports continued concerns with functional use of LUE when attempting IADLs and ADLs, decreased sensation affecting manipulation small items as medications and self care items. Pt. also reports decreased endurance affecting his functional independence and tolerance of both ADL and IADL activities. pt would benefit from continued OT services 1-2x week for next 8 weeks Plan Frequency: 1-2x /Week Duration: 2 Months Plan: continue with OT POC Goals - Goals Patient Goals: Regain Mobility, Return to Work, Improve Fine Motor Skills, Use Hand/Wrist/Arm Normally Again, Decrease Tingling/Numbness, Be More Independent in ADLS Goal:: pt will demo a increase in left UE strength and demo a left apiculture teacher strength of 100# or greater by d/c making gains Goal:: pt will demo left digit ext to straighten fingers to place hands in pocket by d.c ( pt is able to straighten finger (PIP to -10* of extension on left hand) GOAL MET. pt will demo the ability to perform digit opposition indication of increase Fine motor skills by d/c GOAL MET. pt will demo left UE shoulder elbow and wrist and forearm ROM WNL by d.c to increase pts in. with ADls and IADLS. GOAL MET. pt will demo left hand grasp/release of small/ med. and large objects by d/c - pt making gains but continues to drop items decreasing IND with ADLs and IADLs. Goal:: pt will demo IND with bilateral hands skills demo ind tie- manipulate coins- button and zipper by d.c making progress Goal:: pt will demo understanding of sensory precautions as visual compensation to prevent injury to left hand while performing meal prep and IADLs by d/c. pt will demo increase in left hand sensation by testing with monofilaments at 3.19 level or less by d/c Goal:: pt will demo use of orthosis to prevent contractures of left hand by end of 2nd session-. pt will demo IND doffing/donning of orthosis by end of 2nd session-. pt will demo understanding of orthosis precautions by end of 2nd session Anticipated Interventions Anticipated Interventions: A/AAROM/PROM, Strengthening, Sensory Retraining, Orthoses, Joint Protection/Energy Conservation, Ergonomic Education, Fine Motor Coord/Roc, Neuro Reeducation, Education re assistive Equipment, Home Program Please do not hesitate to contact me at [phone] by phone or if you have questions or concerns regarding this new plan of care! Sincerely, Gemma Traore, OTR/L, CHT
== END 2022-09-18 19:00 | disposition home or self-care (01) ==
LOC: OT 15:30
PROVIDERS: PCP Internal Medicine; Referring Provider Internal Medicine; Visit Provider Internal Medicine
DX: G56.92 Unspecified mononeuropathy of left upper limb (principal); R53.81 Other malaise
CPT/HCPCS: 97110; 97112; 97166; 97167; 97530; 97760

== ENCOUNTER 2022-10-27 16:00 | Outpatient (RCR) | payer BC, SELFPAY ==
--- NOTE | 2023-03-20 10:03 | HP.OT.NRP ---
Patient Information Patient Information: MAUREEN HANDLEY was seen in my office for initial evaluation on . The following Plan of Care was established for this patient: POC Established Plan: cont with gym eq. and BTE as able at end Anticipated Interventions Anticipated Interventions: A/AAROM/PROM, Strengthening, Triggerpoint Release, Sensory Retraining, Modalities, Orthoses, Joint Protection/Energy Conservation, Ergonomic Education, Fine Motor Coord/Roc, Neuro Reeducation, Sensory Stimulation, ADL Training, Education re assistive Equipment, Education re Diagnosis and Home Program Last Seen Last Seen: This patient was last seen in our office 10/27/22. Pertinent comments regarding their Occupational therapy will appear below: Pt has not scheduled further apts and due to time lapse in services pt is d/c. At this point I will be discontinuing this patient from occupational therapy. I would be happy to see this patient again in the future if found appropriate by the physician. Thank you! Gemma Traore, OTR/L, CHT
== END 2022-10-27 19:00 | disposition home or self-care (01) ==
LOC: OT 16:00
PROVIDERS: PCP Internal Medicine; Referring Provider Internal Medicine; Visit Provider Internal Medicine
DX: R53.81 Other malaise (principal); G56.92 Unspecified mononeuropathy of left upper limb
CPT/HCPCS: 97110; 97530